=== PATIENT | male | born 1995 | race American Indian/Alaskan Native ===

== ENCOUNTER 2019-02-14 20:38 | Emergency (ER) | payer SELFPAY ==
--- NOTE | 2019-02-14 21:02 | Emergency Department Report ---
Blank Doc - Documentation Documentation: This is a 23-year-old male that presents with right eye pain and irritation. Stated has foreign body sensation. This initial assessment/diagnostic orders/clinical plan/treatment(s) is/are subject to change based on patient's health status, clinical progression and re-assessment by fellow clinical providers in the ED. Further treatment and workup at subsequent clinical providers discretion. Patient/guardians urged not to elope from the ED as their condition may be serious if not clinically assessed and managed. Initial orders include: 1- Patient sent to [facility] for further evaluation and treatment 2- desai lamp 3- visual testing
[2019-02-15] MEDS ORDERED: IBUPROFEN PO ONE (00:48)
--- NOTE | 2019-02-15 00:55 | Emergency Department Report ---
ED Eye Problem HPI - General Chief complaint: Eye Problems Stated complaint: EYE IRRITATION Time Seen by Provider: 02/14/19 21:00 Source: patient Mode of arrival: Ambulatory Limitations: No Limitations - History of Present Illness Initial comments: Patient is a 23-year-old -[place] male with no past medical history presents to the ED with acute onset of persistent painful erythematous right conjunctiva with purulent discharge and matting with photophobia for the last 1 week. Patient unsure of anyone else at work or at home with similar symptoms. Patient denies change in vision or vision loss, nausea, vomiting, dizziness, nasal or sinus congestion, traumatic injury, headache, chest pain or cough and shortness of breath, fever and chills. MD chief complaint: eye pain (right), eye redness (right) -: Sudden, week(s) (1) Onset Description: sudden Location: right eye Place: home If Injury: none Eye Symptoms: burning, redness, pain, itching, discharge, photophobia Severity: severe Severity scale (0 -10): 7 If Pain, Quality: sharp, burning, aching Consistency: constant Associated Symptoms: none. denies: headache, nausea/vomiting, cough, rhinorrhea, fever, shortness of breath, other Treatments Prior to Arrival: none - Related Data Patient Tetanus UTD: Yes Previous Rx's Medication Instructions Recorded Last Taken Type Gentamicin 0.3% Ophth Soln 2 drops OP Q4H #1 bottle 02/15/19 Unknown Rx Ketorolac [Toradol] 10 mg PO Q8H PRN #20 tablet 02/15/19 Unknown Rx Allergies Allergy/AdvReac Type Severity Reaction Status Date / Time amoxicillin Allergy Itching Verified 02/14/19 21:04 ED Review of Systems ROS: Stated complaint: EYE IRRITATION Other details as noted in HPI Comment: All other systems reviewed and negative Constitutional: denies: chills, fever Eyes: eye pain (Right eye), eye discharge (right eye), other (Erythematous right conjunctiva). denies: vision change ENT: denies: ear pain, throat pain Respiratory: denies: cough, shortness of breath, wheezing Cardiovascular: denies: chest pain, palpitations Endocrine: no symptoms reported. denies: see HPI, excessive sweating, flushing, intolerance to cold, increased hunger, increased thirst, increased urine Gastrointestinal: denies: abdominal pain, nausea, vomiting, diarrhea, hematemesis, melena, hematochezia Genitourinary: denies: urgency, dysuria, frequency, hematuria, testicular pain, testicular mass Musculoskeletal: denies: back pain, joint swelling, arthralgia Skin: denies: rash, lesions Neurological: denies: headache, weakness, paresthesias Psychiatric: denies: anxiety, depression Hematological/Lymphatic: denies: easy bleeding, easy bruising ED Past Medical Hx - Past Medical History Previous Medical History?: No - Surgical History Past Surgical History?: No - Social History Smoking Status: Never Smoker Substance Use Type: None - Medications Home Medications: Home Medications Medication Instructions Recorded Confirmed Last Taken Type Gentamicin 0.3% Ophth Soln 2 drops OP Q4H #1 bottle 02/15/19 Unknown Rx Ketorolac [Toradol] 10 mg PO Q8H PRN #20 tablet 02/15/19 Unknown Rx ED Physical Exam - General Limitations: No Limitations General appearance: alert, in no apparent distress - Head Head exam: Present: atraumatic, normocephalic, normal inspection - Eye Eye exam: Present: normal appearance, PERRL, EOMI, other (Erythematous right conjunctiva with purulent discharge and matting; notable photophobia). Absent: scleral icterus, periorbital swelling, periorbital tenderness Pupils: Present: normal accommodation - ENT ENT exam: Present: normal exam, normal orophraynx, mucous membranes moist, TM's normal bilaterally, normal external ear exam - Neck Neck exam: Present: normal inspection, full ROM - Respiratory Respiratory exam: Present: normal lung sounds bilaterally. Absent: respiratory distress, wheezes, rales, rhonchi, chest wall tenderness, accessory muscle use, decreased breath sounds, prolonged expiratory - Cardiovascular Cardiovascular Exam: Present: regular rate, normal rhythm, normal heart sounds. Absent: systolic murmur, diastolic murmur, rubs, gallop - GI/Abdominal GI/Abdominal exam: Present: soft, normal bowel sounds, hyperactive bowel sounds. Absent: distended, tenderness, guarding, hypoactive bowel sounds, organomegaly, mass - Rectal Rectal exam: Present: deferred - Extremities Exam Extremities exam: Present: normal inspection, full ROM, normal capillary refill - Back Exam Back exam: Present: normal inspection, full ROM. Absent: tenderness, CVA tenderness (R), CVA tenderness (L), paraspinal tenderness, vertebral tenderness - Neurological Exam Neurological exam: Present: alert, oriented X3, CN II-XII intact, normal gait, reflexes normal - Psychiatric Psychiatric exam: Present: normal affect, normal mood - Skin Skin exam: Present: warm, dry, intact, normal color. Absent: rash ED Course Vital Signs 02/14/19 02/15/19 21:02 01:34 Temperature 99.1 F Pulse Rate 73 76 Respiratory 18 18 Rate Blood Pressure 133/81 Blood Pressure 126/78 [Left] O2 Sat by Pulse 99 100 Oximetry - Reevaluation(s) Reevaluation #1: 02/15/19 01:45 Patient is alert and oriented 3 and is not in distress. Patient was treated for pain in the ED and be sent home on pain medications and antibiotic eyedrops, and advised to follow-up with his primary care physician in 5-7 days for reevaluation or return to the ED immediately if symptoms get worse. ED Medical Decision Making - Medical Decision Making Patient is alert and oriented 3 and is not in distress. Vital signs are stable. The patient's symptoms are likely due to acute bacterial conjunctivitis based on the physical exam findings and history. Patient was treated for pain in the ED and be sent home on pain medications and antibiotic eyedrops, and advised to follow-up with his primary care physician in 5-7 days for reevaluation or return to the ED immediately if symptoms get worse. - Differential Diagnosis acute bacterial conjunctivitis; acute viral conjunctivitis, keratitis Critical care attestation.: If time is entered above; I have spent that time in minutes in the direct care of this critically ill patient, excluding procedure time. ED Disposition Clinical Impression: Acute conjunctivitis of right eye Qualifiers: Acute conjunctivitis type: bacterial Qualified Code(s): H10.31 - Unspecified acute conjunctivitis, right eye Disposition: DC-01 TO HOME OR SELFCARE Is pt being admited?: No Does the pt Need Aspirin: No Condition: Stable Instructions: Conjunctivitis (ED) Additional Instructions: TAKE medications as otherwise, drink plenty of fluids, apply the antibody eyedrops as advised and follow-up with her primary care physician in 3-5 days for reevaluation. Return to the ED immediately if symptoms get worse. Prescriptions: Gentamicin 0.3% Ophth Soln 2 drops OP Q4H #1 bottle Ketorolac [Toradol] 10 mg PO Q8H PRN #20 tablet PRN Reason: Pain Referrals: SEBASTIAN BANGURA MD [Primary Care Provider] - 3-5 Days Forms: Work/School Release Form(ED) Time of Disposition: 01:25 Print Language: NEPALI
[2019-02-15 01:34] VITALS: BP 126/78
== END 2019-02-15 02:05 | disposition home or self-care (01) ==
LOC: ED 20:38
DX: H10.31 Unspecified acute conjunctivitis, right eye (principal); Z88.1 Allergy status to other antibiotic agents
CPT/HCPCS: 99283

== ENCOUNTER 2019-02-27 17:19 | Emergency (ER) | payer OTHER ==
[2019-02-27] MEDS ORDERED: ROCEPHIN IM ONE (17:32)
[2019-02-27] MEDS ORDERED: ZITHROMAX PO ONE (17:32)
[2019-02-27] MEDS ORDERED: XYLOCAINE 1% MPF 5 mL INFILTRATI ONE (17:32)
[2019-02-27] MEDS ORDERED: BENADRYL PO ONE (17:33)
--- NOTE | 2019-02-27 17:33 | Emergency Department Report ---
ED Dysuria HPI - HPI Chief Complaint: Urogenital-Male Stated Complaint: PAIN URINING Time Seen by Provider: 02/27/19 17:30 Duration: 2 Days Severity: Mild Symptoms: Dysuria: Yes, Frequency: No, Suprapubic Pain: No, Flank Pain: No, Fever: No, Hematuria: No, Abdominal Pain: No, Previous UTI's: No Other History: KNOWN EXPOSURE TO GC ED Review of Systems ROS: Stated complaint: PAIN URINING Other details as noted in HPI Comment: All other systems reviewed and negative ED Past Medical Hx - Past Medical History Previous Medical History?: No - Surgical History Past Surgical History?: No - Family History Family history: no significant - Social History Smoking Status: Never Smoker Substance Use Type: None - Medications Home Medications: Home Medications Medication Instructions Recorded Confirmed Last Taken Type Gentamicin 0.3% Ophth Soln 2 drops OP Q4H #1 bottle 02/15/19 Unknown Rx Ketorolac [Toradol] 10 mg PO Q8H PRN #20 tablet 02/15/19 Unknown Rx Dysuria Exam - Exam General: Vital signs noted. No distress. Alert and acting appropriately. Exam: Yes Moist Mucous Membranes, No CVA Tenderness, No Abdominal Tenderness, No Rigidity or Guarding ED Medical Decision Making - Medical Decision Making KNOWN EXPOSURE TO CHLAMYDIA TOLD TO GET TREATED BURNING WITH URINATION EMPIRC. TREATMENT VSS NO FEVER NO TESTICULAR PAIN Critical care attestation.: If time is entered above; I have spent that time in minutes in the direct care of this critically ill patient, excluding procedure time. ED Disposition Clinical Impression: STD exposure Disposition: DC-01 TO HOME OR SELFCARE Is pt being admited?: No Does the pt Need Aspirin: No Condition: Stable Instructions: Safe Sex (ED) Time of Disposition: 17:31
== END 2019-02-27 17:59 | disposition home or self-care (01) ==
LOC: ED 17:19
DX: A63.8 Other specified predominantly sexually transmitted diseases (principal)
CPT/HCPCS: 96372; 99282; J0696

== ENCOUNTER 2020-07-17 22:44 | Emergency (ER) | payer SELFPAY ==
[2020-07-17 23:32] VITALS: BP 135/74
== END 2020-07-18 01:25 | disposition left against medical advice (07) ==
LOC: ED 22:44
DX: R10.9 Unspecified abdominal pain (principal); Z53.21 Procedure and treatment not carried out due to patient leaving prior to being seen by health care provider